=== PATIENT | male | born 1990 | race Hispanic/Latino ===

== ENCOUNTER 2018-05-06 17:21 | Emergency (ER) | payer OTHER ==
[2018-05-06 17:27] VITALS: RESP 16
[2018-05-06] MEDS ORDERED: Sodium Chloride 0.9% 1,000 ML IV STA (18:00)
[2018-05-06] MEDS ORDERED: Iohexol 240 (50 ml) PO ONE (18:01)
[2018-05-06] MEDS ORDERED: Iohexol 240 (50 ml) ONE (18:16)
[2018-05-06 18:27] LABS: BASO % 0.5 % (0.0-2.0); EOS # 0.1 K/uL (0.0-0.7); EOS % 2.2 % (0.0-4.0); HEMOGLOBIN 14.8 g/dL (12.0-18.0); LYMPH # 1.3 K/uL (1.0-4.3); LYMPH % 31.9 % (20.0-40.0); MEAN CELL VOLUME 89.3 fl (80.0-94.0); MEAN CORPUSCULAR HEMOGLOBIN 30.9 pg (27.0-31.0); MEAN CORPUSCULAR HGB CONC 34.6 g/dL (33.0-37.0); MEAN PLATELET VOLUME 8.2 fl (7.2-11.7); MONO # 0.3 K/uL (0.0-0.8); MONO % 7.6 % (0.0-10.0); NEUT # 2.4 K/uL (1.8-7.0); NEUT % 57.8 % (50.0-75.0); RBC 4.79 Mil/uL (4.40-5.90); RED CELL DISTRIBUTION WIDTH 12.5 % (11.5-14.5); WHITE BLOOD COUNT 4.2 K/uL (4.8-10.8)
[2018-05-06 18:40] LABS: ALB/GLOB RATIO 1.8 (1.0-2.1); ALBUMIN 4.7 g/dL (3.5-5.0); ALT/SGPT 24 U/L (21-72); AST/SGOT 22 U/L (17-59); BLOOD UREA NITROGEN 12 mg/dl (9-20); GFR AFRICAN-AMERICAN > 60; GFR NON-AFRICAN AMERICAN > 60; URINE BILIRUBIN NEGATIVE (NEGATIVE); URINE BLOOD NEGATIVE (NEGATIVE); URINE CLARITY CLEAR (Clear); URINE COLOR STRAW (YELLOW); URINE GLUCOSE (UA) NEG (Normal); URINE LEUKOCYTE ESTERASE NEG Leu/uL (Negative); URINE PROTEIN NEGATIVE (NEGATIVE); URINE UROBILINOGEN 0.2-1.0 mg/dL (0.2-1.0)
[2018-05-06] MEDS ORDERED: Iohexol 300 100 ML IJ ONE (19:07)
[2018-05-06] MEDS ORDERED: Sodium Chloride 0.9% 50 ML IV ONE (19:07)
--- NOTE | 2018-05-06 19:11 | ED PDOC ---
HPI: Male Pain Time Seen by Provider: 05/06/18 17:49 Chief Complaint (Nursing): Groin Pain Chief Complaint (Provider): Groin Pain History Per: Patient History/Exam Limitations: no limitations Onset/Duration Of Symptoms: Days (x1) Additional Complaint(s): Patient is a 27 y/o male who presents to the ED for evaluation of groin pain, onset x1 day ago. Patient states he was carrying a heavy item yesterday and when he turned to the right side felt a pain in his right groin. Today he noticed the pain traveled to his RLQ which prompted him to visit MD who advised him to come here for further evaluation. Patient reports he noticed swelling to his right groin that becomes larger when he stands and decreases when he lies flat. He denies dysuria, fever, nausea, vomiting, diarrhea, numbness, or tingling. Past Medical History Reviewed: Historical Data, Nursing Documentation, Vital Signs Vital Signs: Last Vital Signs Temp 98.2 F 05/06/18 17:24 Pulse 88 05/06/18 17:24 Resp 16 05/06/18 17:24 BP 148/82 05/06/18 17:24 Pulse Ox 98 05/06/18 17:24 - Medical History PMH: Chronic Pain (back pain) - Family History Family History: States: Unknown Family Hx - Social History Drugs: Cannabis - Allergies Allergies/Adverse Reactions: Allergies Allergy/AdvReac Type Severity Reaction Status Date / Time Sulfa (Sulfonamide Allergy RASH Verified 05/06/18 17:24 Antibiotics) Review of Systems ROS Statement: Except As Marked, All Systems Reviewed And Found Negative Constitutional: Negative for: Fever Cardiovascular: Positive for: Edema (swelling to right groin) Gastrointestinal: Positive for: Abdominal Pain (RLQ). Negative for: Nausea, Vomiting, Diarrhea Genitourinary Male: Negative for: Dysuria Musculoskeletal: Positive for: Other (right groin pain) Neurological: Negative for: Numbness, Other (tingling) Physical Exam - Reviewed Nursing Documentation Reviewed: Yes Vital Signs Reviewed: Yes - Physical Exam Appears: Positive for: No Acute Distress Head Exam: Positive for: ATRAUMATIC, NORMOCEPHALIC Skin: Positive for: Normal Color, Warm, Dry Eye Exam: Positive for: EOMI, Normal appearance, PERRL Neck: Positive for: Normal, Painless ROM, Supple Cardiovascular/Chest: Positive for: Regular Rate, Rhythm. Negative for: Murmur Respiratory: Positive for: Normal Breath Sounds. Negative for: Respiratory Distress Gastrointestinal/Abdominal: Positive for: Tenderness (moderate RLQ tenderness). Negative for: Guarding, Rebound Male Genital Exam: Positive for: normal genitalia, other (testicular tenderness ; both testes descended). Negative for: no hernia (small reducible right inguinal hernia), testicular tenderness (R), testicular tenderness (L) Extremity: Positive for: Normal ROM. Negative for: Pedal Edema, Deformity Neurologic/Psych: Positive for: Alert, Oriented. Negative for: Motor/Sensory Deficits - Laboratory Results Result Diagrams: 05/06/18 18:20 05/06/18 18:20 - ECG O2 Sat by Pulse Oximetry: 98 (RA) Pulse Ox Interpretation: Normal Medical Decision Making Medical Decision Making: Time: 18:00 Impression: Groin pain Initial Plan: Type and Screen CT -Abd Pelvis w/ IV CMP CBC w/ diff Omnipaque Toradol Urine C&S ----- Scribe Attestation: Documented by Raman Ibarra, acting as a scribe for Lion Kaur PA-C. Provider Scribe Attestation: All medical record entries made by the Scribe were at my direction and personally dictated by me. I have reviewed the chart and agree that the record accurately reflects my personal performance of the history, physical exam, medical decision making, and the department course for this patient. I have also personally directed, reviewed, and agree with the discharge instructions and disposition. Disposition - Clinical Impression Clinical Impression: Inguinal hernia, Abdominal pain - Patient ED Disposition Is Patient to be Admitted: Transfer of Care (Signed out to Ezekiel BETH pending CT results, re-evaluation, and final disposition) - Disposition Disposition Time: 20:00 Condition: STABLE Forms: [employer] (Macedonian)
--- NOTE | 2018-05-06 21:48 | ED PDOC ---
- Laboratory Results Result Diagrams: 05/06/18 18:20 05/06/18 18:20 - ECG O2 Sat by Pulse Oximetry: 98 (RA) - Progress ED Course And Treament: Case endorsed to health technical writer from Vincent BETH pending CT EXAM: CT Abdomen and Pelvis With Intravenous Contrast EXAM DATE/TIME: 05/06/2018 6:00 PM CLINICAL HISTORY: 27 years old, male; Pain; Abdominal pain; Flank; Other: Right inguinalmass; Additional info: Rlq pain, r inguinal mass TECHNIQUE: Axial computed tomography images of the abdomen and pelvis with intravenous contrast. All CT scans at this facility use at least one of these dose optimization techniques: automated exposure control; mA and/or kV adjustment per patient size (includes targeted exams where dose is matched to clinical indication); or iterative reconstruction. CONTRAST: 95 mL of omnipaque administered intravenously. COMPARISON: No relevant prior studies available. FINDINGS: Lung bases: Unremarkable. No mass. No consolidation. ABDOMEN: Liver: Unremarkable. No mass. Gallbladder and bile ducts: Unremarkable. No calcified stones. No ductal dilation. Pancreas: Unremarkable. No mass. No ductal dilation. Spleen: Unremarkable. No splenomegaly. Adrenals: Unremarkable. No mass. Kidneys and ureters: Unremarkable. No solid mass. No hydronephrosis. Stomach and bowel: Unremarkable. No obstruction. No mucosal thickening. PELVIS: Appendix: No findings to suggest acute appendicitis. Bladder: Unremarkable. No mass. Reproductive: Unremarkable as visualized. ABDOMEN and PELVIS: Intraperitoneal space: Unremarkable. No free air. No significant fluid collection. Bones/joints: No acute fracture. No dislocation. Soft tissues: Minimal asymmetric fat within the right inguinal canal. Vasculature: Aortocaval fluid collection with calcification, likely a lymphocele or cyst. No abdominal aortic aneurysm. Lymph nodes: Unremarkable. No enlarged lymph nodes. IMPRESSION: No mass lesion, or acute obstructive or inflammatory process in the abdomen or pelvis. Patient educated on findings, discharged with rx Naproxen, Flexeril Advised ice Follow up PMD Follow up surgery for hernia Return precautions given. Patient demonstrates full understanding of discharge instructions and is stable for discharge at this time. Disposition Counseled Patient/Family Regarding: Studies Performed, Diagnosis, Need For Followup, Rx Given - Clinical Impression Clinical Impression: Inguinal hernia, Abdominal pain - POA Present On Arrival: None - Disposition Referrals: Rick Oakley MD [Staff Provider] - Disposition: Routine/Home Disposition Time: 22:23 Condition: STABLE Prescriptions: Cyclobenzaprine [Cyclobenzaprine HCl] 10 mg PO BID PRN #14 tab PRN Reason: Muscle Spasm Naproxen [Naprosyn] 500 mg PO Q12 PRN #20 tablet PRN Reason: Pain, Moderate (4-7) Instructions: Inguinal and Femoral (Groin) Hernias, Muscle Strain Forms: [employer] (Nepali)
[2018-05-06 23:12] VITALS: BP 143/84; PULSE 76; TEMP 98; O2SAT 99
--- NOTE | 2018-05-07 11:11 | CT ---
Date of service: 05/06/2018 PROCEDURE: CT Abdomen and Pelvis with contrast HISTORY: RLQ pain, R inguinal mass COMPARISON: None. TECHNIQUE: Contrast dose: 95 cc Omnipaque 300 mg Radiation dose: Total exam DLP = 682 mGy-cm. This CT exam was performed using one or more of the following dose reduction techniques: Automated exposure control, adjustment of the mA and/or kV according to patient size, and/or use of iterative reconstruction technique. FINDINGS: LOWER THORAX: Unremarkable. LIVER: Unremarkable. No gross lesion or ductal dilatation. GALLBLADDER AND BILE DUCTS: Unremarkable. PANCREAS: Unremarkable. No gross lesion or ductal dilatation. SPLEEN: Unremarkable. ADRENALS: Unremarkable. No mass. KIDNEYS AND URETERS: Unremarkable. No hydronephrosis. No solid mass. VASCULATURE: Unremarkable. No aortic aneurysm. BOWEL: Unremarkable. No obstruction. No gross mural thickening. APPENDIX: Normal appendix. PERITONEUM: Unremarkable. No free fluid. No free air. LYMPH NODES: Unremarkable. No enlarged lymph nodes. BLADDER: Unremarkable. REPRODUCTIVE: Unremarkable. BONES: No acute fracture. OTHER FINDINGS: Minimal asymmetric fat and possible trace panniculitis of unknown chronicity in the right groin roman: No bowel containing hernias here seen IMPRESSION: Minimal asymmetric fat and possible trace panniculitis of unknown chronicity in the right groin : No bowel containing hernias here seen. Otherwise unremarkable exam Concordant results (preliminary interpretation) provided by [facility].
--- NOTE | 2018-05-07 14:30 | US ---
Date of service: 05/06/2018 HISTORY: R testicular pain, ? R inguinal hernia TECHNIQUE: Realtime sonography through the scrotum with color and doppler flow. COMPARISON: None Available. FINDINGS: RIGHT TESTICLE: Measures 5.3 x 3.9 x 2 point sick cm. Possible minute microcalcifications. No suspect intratesticular mass. Normal flow. RIGHT EPIDIDYMIS: Epididymal head measures 1.1 x 1.1 x 1.3 cm. Right epididymal head cyst 0.9 x 1.0 x 0.3 cm. Normal flow. LEFT TESTICLE: Measures 4.6 x 3.1 x 2.5 cm. Possible minute micro calcifications. No intratesticular masses. Normal flow. LEFT EPIDIDYMIS: Epididymal head measures 0.8 x 1.1 x 1.2 cm. normal flow. HYDROCELE: Mild left hydrocele VARICOCELE: Mild left varicocele OTHER FINDINGS: In the right groin also pointed out as in area of interest there is a 2.2 x 1.8 x 0.9 cm slightly hypoechoic area -no vascularity here is noted. It is unclear if this may represent some peristalsing bowel. IMPRESSION: Indeterminate right groin 2.1 x 1.7 x 0.9 cm hypoechoic lesion and/or possible collection. Consider follow-up evaluation with targeted soft tissue ultrasound here with cine recording and Doppler evaluation. No intratesticular masses. Incidental bilateral micro lithiasis each testicle Right epididymal head cyst. Small left hydrocele. Small left varicoceles. Concordant results (preliminary interpretation) provided by [facility].
== END 2018-05-06 23:11 | disposition home or self-care (01) ==
LOC: H.ER 17:21
DX: K40.90 Unilateral inguinal hernia, without obstruction or gangrene, not specified as recurrent (principal); M45.9 Ankylosing spondylitis of unspecified sites in spine; G89.29 Other chronic pain
CPT/HCPCS: 74177; 80053; 81003; 85025; 86850; 86900; 87086; 93975; 96374; 99284; J1885; J7030; Q9966; Q9967